=== PATIENT | female | born 1970 | race Caucasian/White ===

== ENCOUNTER → 2022-09-27 | Outpatient (CLI) | payer BC, OTHER ==
--- NOTE | 2022-09-28 13:13 | Diagnostic Imaging Report ---
Bilateral digital 2-D and 3-D screening with CAD. The current study was also evaluated with a Computer Aided Detection (CAD) system. COMPARISON: 12/2015 and 2013 FINDINGS: density 2 No breast mass, spiculated lesion, architectural distortion, suspicious calcifications or changes to suggest malignancy. IMPRESSION: BI-RADS Category 1 ACR BI-RADS Category 1: Negative. Result letter will be mailed to the patient. Note: At least 10% of breast cancer is not imaged by mammography. Dictated by: Dictated on workstation # [id number]
== END ==
LOC: RAD 14:32
PROVIDERS: ATTEND Nurse Practitioner Family
DX: Z12.31 Encounter for screening mammogram for malignant neoplasm of breast (principal)
CPT/HCPCS: 77063; 77067